=== PATIENT | male | born 1995 | race Caucasian/White ===

== ENCOUNTER 2017-10-04 09:47 | Emergency (ER) | payer SELFPAY ==
[~2017-10-04] VITALS: Ht 182.9 cm; Wt 100.0 kg
[~2017-10-04 09:47] MED LIST: IBUP600T26 PO; TRAM50 PO
[2017-10-04 09:55] VITALS: BP 139/105; PULSE 84; RESP 16; TEMP 97.5; O2SAT 97
[2017-10-04] MEDS ORDERED: SODIUM CHLORIDE 0.9% FLUSH 10 ML FLUSH IVF PRN (10:45)
[2017-10-04] MEDS ORDERED: RESP: ALBUTEROL 2.5 MG/IPRATROPIUM 0.5 MG NEB (SCH) INH ONE (10:45)
[2017-10-04] MEDS ORDERED: ALBUAER3 INH (10:54)
[2017-10-04] MEDS ORDERED: AZIT250T3 PO (10:54)
--- NOTE | 2017-10-04 10:55 | PD ---
HPI Chief Complaint: Cold / Flu Symptoms Time Seen by Provider: 10:27 Travel History International Travel<30 days: No Contact w/Intl Traveler<30days: No Traveled to known affect area: No History of Present Illness HPI Patient is 22 years old. He has had a cough and sore throat for about 3-4 days. The sore throat is worsening. He had a fever 2 days ago size 104. Fever is resolved. Patient had hemoptysis yesterday evening and this morning just a minute quantity streaky blood in the phlegm. He denies sick contacts. Initially the patient of body aches however has not the time of ER evaluation. No chest pain. PFSH Past Medical History Diminished Hearing: No Immunizations Current: Yes ?: Not Social History Alcohol Use: No Tobacco Use: No Substance Use: No Allergies-Medications (Allergen,Severity, Reaction): Coded Allergies: No Known Allergies (Verified Adverse Reaction, Unknown, 10/04/17) Reported Meds & Prescriptions Reported Meds & Active Scripts Active Prednisone 20 Mg Tab 40 Mg PO DAILY 3 Days Take 40 mg (2 tablets) daily for 5 days Proair Hfa 8.5 GM Inh (Albuterol Sulfate) 90 Mcg/Act Aer 2 Puff INH Q6H PRN 108 mcg/actuation Azithromycin 250 Mg Tab 250 Mg PO DIRECTED Take 2 tabs (500 mg) on day 1 then 1 tab daily x 4 days. Ibuprofen 600 Mg Tab 600 Mg PO TID PRN Ultram (Tramadol HCl) 50 Mg Tab 50 Mg PO Q6 PRN FOR PAIN Review of Systems Except as stated in HPI: all other systems reviewed are Neg General / Constitutional: No: Fever Eyes: No: Blurred Vision Physical Exam Narrative GENERAL: 22 yo WNWD, NAD Vital Signs Date Time Temp Pulse Resp B/P (MAP) Pulse Ox O2 Delivery O2 Flow Rate FiO2 10/04/17 09:55 97.5 84 16 139/105 (116) 97 SKIN: Warm and dry. HEAD: Atraumatic. Normocephalic. EYES: Pupils equal and round. No scleral icterus. No injection or drainage. ENT: No nasal bleeding or discharge. Mucous membranes pink and moist. Tonsillar exudate bilaterally. 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 NECK: Trachea midline. No JVD. CARDIOVASCULAR: Regular rate and rhythm. RESPIRATORY: No accessory muscle use. Clear to auscultation. Breath sounds equal bilaterally. GASTROINTESTINAL: Abdomen soft, non-tender, nondistended. Hepatic and splenic margins not palpable. MUSCULOSKELETAL: Extremities without clubbing, cyanosis, or edema. No obvious deformities. NEUROLOGICAL: Awake and alert. No obvious cranial nerve deficits. Motor grossly within normal limits. Five out of 5 muscle strength in the arms and legs. Normal speech. PSYCHIATRIC: Appropriate mood and affect; insight and judgment normal. Data Data Last Documented VS Vital Signs Date Time Temp Pulse Resp B/P (MAP) Pulse Ox O2 Delivery O2 Flow Rate FiO2 10/04/17 11:48 80 20 132/89 (103) 98 10/04/17 10:49 Room Air 10/04/17 09:55 97.5 Orders Orders Oxygen Administration (10/04/17 10:36) Chest, Pa & Lat (10/04/17 10:36) Sodium Chloride 0.9% Flush (Ns Flush) (10/04/17 10:45) Albuterol-Ipratropium Neb (Duoneb Neb) (10/04/17 10:45) Ed Discharge Order (10/04/17 10:58) [facility] Medical Decision Making Medical Screen Exam Complete: Yes Emergency Medical Condition: Yes Medical Record Reviewed: Yes Differential Diagnosis PNA, influenza, Strep throat Narrative Course Presentation could reflect influenza or non-specific viral syndrome, potentially atypical pna. No evidence of mass on chest x-ray. Azithromycin prescription. Albuterol inhaler. Diagnosis Primary Impression: Viral syndrome Additional Impressions: Bronchitis Pharyngitis Qualified Codes: J02.9 - Acute pharyngitis, unspecified Referrals: Primary Care Physician call for appointment Med/Other Pt SpecificInfo: Prescription(s) given Scripts Prednisone (Prednisone) 20 Mg Tab 40 MG PO DAILY for 3 Days, #6 TAB 0 Refills Take 40 mg (2 tablets) daily for 5 days Prov: Bipin Suarez MD 10/04/17 Albuterol 8.5 GM Inh (Proair Hfa 8.5 GM Inh) 90 Mcg/Act Aer 2 PUFF INH Q6H Y for SHORTNESS OF BREATH, #1 INHALER 0 Refills 108 mcg/actuation Prov: Bipin Suarez MD 10/04/17 Azithromycin (Azithromycin) 250 Mg Tab 250 MG PO DIRECTED for Infection, #6 TAB 0 Refills Take 2 tabs (500 mg) on day 1 then 1 tab daily x 4 days. Prov: Bipin Suarez MD 10/04/17 Disposition: 01 DISCHARGE HOME Condition: Stable Bipin Suarez MD Oct 04, 2017 10:55
--- NOTE | 2017-10-04 11:06 | RADRPT ---
EXAM DATE/TIME: 10/04/2017 10:43 [place] COMPARISON: CHEST PA & LAT, April 14, 2012, 15:46. INDICATIONS : Cough. Sore throat. Hemoptysis. MEDICAL HISTORY : Smoker. SURGICAL HISTORY : None. ENCOUNTER: Initial ACUITY: 3 days PAIN SCORE: 5/10 LOCATION: throat FINDINGS: PA and lateral views of the chest demonstrate the lungs to be symmetrically aerated without evidence of mass, infiltrate or effusion. The cardiomediastinal contours are unremarkable. Osseous structure s are intact. CONCLUSION: No acute cardiopulmonary disease. Tony Siu MD on October 04, 2017 at 11:04 Board Certified Radiologist. This report was verified electronically.
[2017-10-04] MEDS ORDERED: PRED20 PO (11:15)
[2017-10-04 11:48] VITALS: BP 132/89
== END 2017-10-04 11:52 | disposition home or self-care (01) ==
LOC: NEPD 09:47
DX: B34.9 Viral infection, unspecified (principal); J40 Bronchitis, not specified as acute or chronic; J02.9 Acute pharyngitis, unspecified
CPT/HCPCS: 71046; 94664; 99283